=== PATIENT | female | born 1985 | race Caucasian/White ===

== ENCOUNTER 2016-08-12 08:22 | Day surgery (SDC) | payer OTHER ==
[2016-08-09 16:25] LABS: BASOPHILS % (AUTO) 0.6 % (0.0-2.0); EOSINOPHILS % (AUTO) 0.8 % (1.0-6.0); HEMATOCRIT 46.2 % (36-46); HEMOGLOBIN 15.1 g/dL (12.0-16.0); LYMPHOCYTES # (AUTO) 2.2 K/uL (1.0-4.8); LYMPHOCYTES % (AUTO) 25.1 % (22.0-44.0); MEAN CORPUSCULAR HEMOGLOBIN 28.4 pg (26.0-34.0); MEAN CORPUSCULAR HGB CONC 32.7 G/dL (31.0-37.0); MEAN CORPUSCULAR VOLUME 87 fL (80-100); MONOCYTES # (AUTO) 0.6 K/uL (0.1-1.0); MONOCYTES % (AUTO) 6.5 % (2.0-9.0); NEUTROPHILS # (AUTO) 5.8 K/uL (1.8-7.7); PLATELET COUNT (AUTO) 333 K/uL (150-450); RED BLOOD CELL COUNT(AUTO) 5.31 MIL/uL (4.00-5.20); RED CELL DISTRIBUTION WIDTH 14.6 % (11.5-14.5); WHITE BLOOD COUNT (AUTO) 8.6 K/uL (4.5-11.0)
[2016-08-09 16:38] LABS: PROTHROMBIN TIME 10.9 SEC (9.4-11.6)
[2016-08-09 16:57] LABS: ALANINE AMINOTRANSFERASE 36 U/L (12-78); ALBUMIN 3.9 g/dL (3.4-5.0); ANION GAP 9 mmol/L (8-16); ASPARTATE AMINOTRANSFERASE 18 U/L (15-37); BILIRUBIN,TOTAL 0.3 mg/dL (0.1-1.0); CALCIUM, TOTAL 8.6 mg/dL (8.8-10.5); CARBON DIOXIDE 29 mmol/L (22-29); CHLORIDE 100 mmol/L (98-107); CREATININE 0.93 mg/dL (0.60-1.30); GLOMERULAR FILTR. RATE CALC > 60 mL/min (>60); POTASSIUM 4.2 mmol/L (3.5-5.1); SODIUM SERUM 138 mmol/L (136-145); TOTAL PROTEIN, SERUM 7.6 g/dL (6.4-8.2); UREA NITROGEN, BLOOD 11 mg/dL (7-18)
[2016-08-09 17:12] LABS: HEMOGLOBIN A1C 5.7 % (4.5-6.2)
[~2016-08-12] VITALS: Ht 172.7 cm; Wt 76.4 kg
[~2016-08-12 08:22] MED LIST: ACET-784 PO; CeFAZolin 2 GM/DEXTROSE 50 ML IV ONE; DOXY150T PO; FentaNYL CITRATE-PF 100 MCG/2 ML VIAL IVP ONE; FentaNYL CITRATE-PF 250 MCG/5 ML VIAL IVP ONE; LIDO15CR11 TP; MELO-273 PO; METR500 PO; MIDAZOLAM HCL 2 MG/2 ML VIAL IVP ONE; MULT-1203 PO; PROM25 PO; PROPOFOL 1% 20 ML VIAL IVP ONE; RIZA10 PO; SERT100T12 PO; SUMA6I SQ; ZOLP10 PO
[2016-08-12] MEDS ORDERED: CeFAZolin 2 GM/DEXTROSE 50 ML IV ONE (08:54)
[2016-08-12] MEDS ORDERED: RINGERS SOLUTION,LACTATED 1,000 ML IV ONE ×2 (08:54→09:00)
[2016-08-12] MEDS ORDERED: 0.9% SODIUM CHLORIDE 10 ML SYRINGE IVP ONE (09:22)
[2016-08-12] MEDS ORDERED: BUPIVACAINE HCL/PF 0.5% 30 ML VIAL ONE ×2 (10:36→12:23)
[2016-08-12] MEDS ORDERED: LIDOCAINE HCL/PF 2% 5 ML VIAL ONE ×2 (10:36→10:43)
[2016-08-12] MEDS ORDERED: DEXAMETHASONE SOD PHOS 4 MG/ML VIAL ONE ×2 (12:05→12:58)
[2016-08-12] MEDS ORDERED: GUM MASTIC/STORAX/MSAL/ALCOHOL LIQUID 0.67 ML VIAL TP ONE (12:21)
[2016-08-12] MEDS ORDERED: OXYGEN THERAPY IH SCH (13:00)
[2016-08-12] MEDS ORDERED: MEPERIDINE-PF 25 MG/ML SYRINGE IVP PRN (13:00)
[2016-08-12] MEDS ORDERED: FentaNYL CITRATE-PF 100 MCG/2 ML VIAL ONE ×2 (13:38→13:53)
[2016-08-12] MEDS: FentaNYL CITRATE-PF 100 MCG/2 ML VIAL IVP PRN ×4 (13:42→14:00)
[2016-08-12] MEDS ORDERED: HYDROmorphone 2 MG/ML SYRINGE ONE (13:48)
[2016-08-12] MEDS: HYDROmorphone 2 MG/ML SYRINGE IVP PRN ×6 (13:51→15:12)
[2016-08-12] MEDS ORDERED: MEPERIDINE-PF 25 MG/ML SYRINGE ONE (13:57)
[2016-08-12] MEDS ORDERED: ACETAMINOPHEN 1000 MG/ISO-OSM 100 ML IV ONE ×2 (14:07→14:15)
[2016-08-12] MEDS ORDERED: SODIUM CHLORIDE 0.9% 500 ML IV ONE (14:12)
[2016-08-12] MEDS ORDERED: KETOROLAC TROMETHAMINE 30 MG/ML VIAL IVP ONE (14:15)
== END 2016-08-12 16:15 | disposition home or self-care (01) ==
LOC: SURGERY 08:22
PROVIDERS: ATTEND Podiatrist Foot & Ankle Surgery
DX: M20.5X2 Other deformities of toe(s) (acquired), left foot (principal); M20.5X1 Other deformities of toe(s) (acquired), right foot
CPT/HCPCS: 28306; 36415; 80053; 83036; 84550; 84703; 85025; 85610; 85730; J0131; J0690; J1100; J1170; J1885; J2175; J2250; J2704; J3010 ×2; J3490 ×2; J7040; J7120